=== PATIENT | male | born 1990 | race Caucasian/White ===

== ENCOUNTER 2018-02-14 14:38 | Emergency (ER) | payer BC | END 2018-02-14 15:05 | disposition home or self-care (01) | LOC: FTE 14:38 → E/R 15:05 | DX: H60.92 Unspecified otitis externa, left ear (principal) | CPT/HCPCS: 99283 ==

== ENCOUNTER → 2019-05-28 | Emergency (ER) | payer BC ==
[2019-05-28] MEDS: ACETAMINOPHEN 500 MG TAB PO (17:39)
== END | disposition home or self-care (01) ==
LOC: FTE 16:41
DX: M25.561 Pain in right knee (principal)
CPT/HCPCS: 73562; 99283-25